=== PATIENT | male | born 1955 | race Caucasian/White ===

== ENCOUNTER → 2020-08-22 | Outpatient (CLI) | payer SELFPAY | LOC: M LABSMTC 09:56 | PROVIDERS: ATTEND Pediatrics | DX: Z20.828 Contact with and (suspected) exposure to other viral communicable diseases (principal) ==

== ENCOUNTER → 2020-09-12 | Outpatient (CLI) | payer SELFPAY | LOC: M LABSMTC 13:39 | PROVIDERS: ATTEND Pediatrics | DX: Z20.822 Contact with and (suspected) exposure to COVID-19 (principal) ==

== ENCOUNTER 2020-11-26 13:28 | Emergency (ER) | payer BC, MEDICARE, OTHER ==
--- NOTE | 2020-11-26 15:00 | REP ---
INDICATION: TRAUMA RIGHT SIDE OF HEAD. COMPARISON: Comparison is made with images from brain CT study June 02, 2010.. TECHNIQUE: Helical scanning is acquired and 2 mm axial images re-formatted. Coronal MPR images are generated and reviewed. FINDINGS: Digital preliminary rubber cutter and shape carver views are unremarkable. Zygomatic arches appear intact. No skull base fracture is seen. Orbital margins are intact. No paranasal sinus fracture is seen. Frontal sinuses are clear. There is partial opacification in the anterior ethmoid air cells on the left. Sphenoid sinuses clear. Maxillary sinuses are clear. The bony nasal septum deviates somewhat to the left with a moderate size septal beak. The inferior maxillary spine and nasal bone appear intact. No mandibular fracture is appreciated. There is spray artifact from dental amalgam. 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 IMPRESSION: Mild mucosal thickening in anterior ethmoid air cells on the left. Leftward nasal septal deviation. No traumatic abnormality noted. <Electronically signed by George Jorge > 11/26/20 [id number]
== END 2020-11-26 15:30 | disposition home or self-care (01) ==
LOC: M ED 13:28
DX: S05.11XA Contusion of eyeball and orbital tissues, right eye, initial encounter (principal); W20.8XXA Other cause of strike by thrown, projected or falling object, initial encounter; Y92.821 Forest as the place of occurrence of the external cause; Y93.89 Activity, other specified; Y99.8 Other external cause status; I10 Essential (primary) hypertension; E78.5 Hyperlipidemia, unspecified; F17.290 Nicotine dependence, other tobacco product, uncomplicated

== ENCOUNTER → 2021-03-17 | Outpatient (REF) | payer MEDICARE, OTHER | LOC: M LAB REF 19:23 | PROVIDERS: ATTEND Physician Assistant | DX: C44.41 Basal cell carcinoma of skin of scalp and neck (principal); L23.7 Allergic contact dermatitis due to plants, except food; L82.1 Other seborrheic keratosis | CPT/HCPCS: 11102; 88305; G0463 ==

== ENCOUNTER → 2021-08-24 | Outpatient (REF) | LOC: M LABSMTC 10:44 | PROVIDERS: ATTEND Pediatrics | DX: Z11.52 Encounter for screening for COVID-19 (principal) ==

== ENCOUNTER → 2022-10-01 | Outpatient (CLI) | payer MEDICARE, OTHER | LOC: M PLAIMG 10:49 | PROVIDERS: ATTEND Family Medicine | DX: R05.3 Chronic cough (principal); R91.8 Other nonspecific abnormal finding of lung field; Z87.891 Personal history of nicotine dependence ==

== ENCOUNTER → 2023-01-20 | Outpatient (CLI) | payer MEDICARE, OTHER ==
[~2023-01-20] MED LIST: AMLO1TAB25 PO; ATOR1TAB21 PO; LIDO1CRE42 TOP; LIDOCAINE 1% MDV 20ML VIAL As Ordered ONE; MIDAZOLAM INJ 2MG/2ML VIAL As Ordered ONE; NS 1,000 ML IV SCH; ONDA-84 PO; PROC10TA5 PO; SPIR-10 PO; TELM1TAB37 PO; VITA100T59 PO; [UNRECOGNIZED DRUG - CODE]; [UNRECOGNIZED DRUG - CODE] XX; ceFAZolin 2 GM/D5W 50 ML IV BAG As Ordered ONE; ceFAZolin SOD 2 GM in IV 1 EA IV ONE; diphenhydrAMINE 50MG/ML VIAL As Ordered ONE; fentaNYL 100 MCG/2 ML INJECTION As Ordered ONE
[2023-01-20 15:57] VITALS: BP 126/74
== END ==
LOC: M IRPRO 12:35
PROVIDERS: ATTEND Specialist
DX: C25.9 Malignant neoplasm of pancreas, unspecified (principal); K86.2 Cyst of pancreas
CPT/HCPCS: 36561; 99152; 99153; C1769; C1788; C1894; J0690; J1200; J2250; J3010

== ENCOUNTER → 2023-03-02 | Outpatient (CLI) | payer MEDICARE, OTHER ==
[~2023-03-02] VITALS: Ht 172.7 cm; Wt 74.2 kg
[~2023-03-02] MED LIST changes: -LIDOCAINE 1% MDV 20ML VIAL As Ordered ONE; -MIDAZOLAM INJ 2MG/2ML VIAL As Ordered ONE; -NS 1,000 ML IV SCH; -ceFAZolin 2 GM/D5W 50 ML IV BAG As Ordered ONE; -ceFAZolin SOD 2 GM in IV 1 EA IV ONE; -diphenhydrAMINE 50MG/ML VIAL As Ordered ONE; -fentaNYL 100 MCG/2 ML INJECTION As Ordered ONE
[2023-03-02 09:11] VITALS: BP 131/79; O2SAT 98
== END ==
LOC: M PAL 09:03
PROVIDERS: ATTEND Nurse Practitioner Adult Health
DX: C25.9 Malignant neoplasm of pancreas, unspecified (principal); Z51.5 Encounter for palliative care; G62.0 Drug-induced polyneuropathy; F17.299 Nicotine dependence, other tobacco product, with unspecified nicotine-induced disorders; Z92.21 Personal history of antineoplastic chemotherapy; R63.0 Anorexia; R11.0 Nausea; Z80.1 Family history of malignant neoplasm of trachea, bronchus and lung; Z80.42 Family history of malignant neoplasm of prostate; Z80.3 Family history of malignant neoplasm of breast; Z91.048 Other nonmedicinal substance allergy status; J30.1 Allergic rhinitis due to pollen; Z79.899 Other long term (current) drug therapy

== ENCOUNTER → 2023-04-20 | Outpatient (CLI) | payer MEDICARE, OTHER ==
[~2023-04-20] VITALS: Ht 172.7 cm; Wt 76.0 kg
[~2023-04-20] MED LIST changes: -LIDO1CRE42 TOP; +LIDO30CR18 TOP
[2023-04-20 08:07] VITALS: BP 121/72; TEMP 97.7; O2SAT 98
== END ==
LOC: M PAL 07:59
PROVIDERS: ATTEND Nurse Practitioner Adult Health
DX: C25.9 Malignant neoplasm of pancreas, unspecified (principal); J30.89 Other allergic rhinitis; J30.81 Allergic rhinitis due to animal (cat) (dog) hair and dander; Z51.5 Encounter for palliative care; R63.0 Anorexia; G62.9 Polyneuropathy, unspecified; R11.0 Nausea; R43.8 Other disturbances of smell and taste; F17.210 Nicotine dependence, cigarettes, uncomplicated; F12.90 Cannabis use, unspecified, uncomplicated; Z79.899 Other long term (current) drug therapy; Z80.1 Family history of malignant neoplasm of trachea, bronchus and lung; Z80.3 Family history of malignant neoplasm of breast; Z80.42 Family history of malignant neoplasm of prostate; Z92.21 Personal history of antineoplastic chemotherapy

== ENCOUNTER → 2023-06-22 | Outpatient (CLI) | payer MEDICARE, OTHER ==
[~2023-06-22] VITALS: Ht 172.7 cm; Wt 78.0 kg
[2023-06-22 08:20] VITALS: BP 146/79; O2SAT 97
== END ==
LOC: M PAL 08:03
PROVIDERS: ATTEND Nurse Practitioner Adult Health
DX: C25.9 Malignant neoplasm of pancreas, unspecified (principal); G62.9 Polyneuropathy, unspecified; Z51.5 Encounter for palliative care; R63.0 Anorexia; R11.0 Nausea; R43.8 Other disturbances of smell and taste; F17.210 Nicotine dependence, cigarettes, uncomplicated; F12.90 Cannabis use, unspecified, uncomplicated; Z79.899 Other long term (current) drug therapy; Z80.1 Family history of malignant neoplasm of trachea, bronchus and lung; Z80.3 Family history of malignant neoplasm of breast; Z80.42 Family history of malignant neoplasm of prostate; Z92.21 Personal history of antineoplastic chemotherapy; J30.81 Allergic rhinitis due to animal (cat) (dog) hair and dander; J30.89 Other allergic rhinitis

== ENCOUNTER → 2024-07-23 | Outpatient (REF) | payer MEDICARE, OTHER | LOC: M SFHCDERM 07:52 | PROVIDERS: ATTEND Physician Assistant | DX: C44.319 Basal cell carcinoma of skin of other parts of face (principal) ==

== ENCOUNTER → 2024-12-06 | Outpatient (CLI) | payer MEDICARE, OTHER | LOC: M CARPUL 07:45 | PROVIDERS: ATTEND Physician Assistant | DX: R94.31 Abnormal electrocardiogram [ECG] [EKG] (principal) ==

== ENCOUNTER → 2025-05-15 | Outpatient (REF) | payer MEDICARE, OTHER | LOC: M SFHCDERM 08:57 | PROVIDERS: ATTEND Physician Assistant | DX: C44.612 Basal cell carcinoma of skin of right upper limb, including shoulder (principal) ==

== ENCOUNTER → 2025-06-05 | Outpatient (CLI) | payer MEDICARE, OTHER | LOC: M CARPUL 08:16 | PROVIDERS: ATTEND Physician Assistant | DX: I11.9 Hypertensive heart disease without heart failure (principal); R94.31 Abnormal electrocardiogram [ECG] [EKG]; I77.810 Thoracic aortic ectasia ==

== ENCOUNTER → 2025-06-11 | Outpatient (REF) | payer MEDICARE, OTHER | LOC: M SFHCDERM 18:06 | PROVIDERS: ATTEND Physician Assistant | DX: C44.91 Basal cell carcinoma of skin, unspecified (principal) ==